=== PATIENT | male | born 1985 | race Asian ===

== ENCOUNTER 2025-05-16 18:36 | Emergency (ER) | payer MEDICAID ==
[~2025-05-16] VITALS: Ht 182.9 cm; Wt 106.6 kg
[2025-05-16 18:45] VITALS: BP 136/92; TEMP 98.2; O2SAT 97
== END 2025-05-16 21:46 | disposition left against medical advice (07) ==
LOC: ER 18:43 → EDBD 18:43 → ER 21:46
DX: M25.559 Pain in unspecified hip (principal); Z53.21 Procedure and treatment not carried out due to patient leaving prior to being seen by health care provider